=== PATIENT | female | born 2000 | race Caucasian/White ===

== ENCOUNTER → 2021-09-28 | Outpatient (CLI) | payer MEDICAID | LOC: RAD 10:00 | DX: R10.2 Pelvic and perineal pain (principal) ==

== ENCOUNTER 2022-05-26 18:52 | Emergency (ER) | payer MEDICAID ==
[2022-05-26] MEDS ORDERED: CEPHALEXIN500 M1 PO (19:37)
[2022-05-26 19:52] VITALS: BP 121/78
== END 2022-05-26 19:53 | disposition home or self-care (01) ==
LOC: ED 18:52
DX: S30.861A Insect bite (nonvenomous) of abdominal wall, initial encounter (principal); Z28.310 Unvaccinated for COVID-19; W57.XXXA Bitten or stung by nonvenomous insect and other nonvenomous arthropods, initial encounter